=== PATIENT | male | born 1980 | race Caucasian/White ===

== ENCOUNTER 2017-10-13 14:08 | Emergency (ER) | payer MEDICAID ==
[~2017-10-13] VITALS: Ht 172.7 cm; Wt 99.8 kg
[2017-10-13 14:16] VITALS: Ht 172.7 cm; Wt 99.8 kg
[2017-10-13 15:44] VITALS: BP 125/74
== END 2017-10-13 15:45 | disposition home or self-care (01) ==
LOC: ED 14:08
DX: F41.9 Anxiety disorder, unspecified (principal); I10 Essential (primary) hypertension; F15.10 Other stimulant abuse, uncomplicated

== ENCOUNTER 2017-10-14 02:31 | Inpatient (IN) | payer MEDICAID ==
[~2017-10-14] VITALS: Ht 172.7 cm; Wt 95.9 kg
[2017-10-14 02:35] VITALS: Ht 172.7 cm; Wt 95.9 kg
[2017-10-14 04:49] LABS: BASOPHIL % 0.3 % (0-2); PLATELET COUNT 292 x10^3mcL (130-400); RED CELL DISTRIBUTION WIDTH 13.6 % (11.5-14.5)
[2017-10-14 04:58] LABS: CALCIUM 9.2 mg/dL (8.5-10.1); CARBON DIOXIDE 23.4 mmol/L (21-32); CHLORIDE SERUM 106 mmol/L (98-107); CREATININE SERUM 1.1 mg/dL (0.7-1.3); GFR1 > 60 mL/min; GLUCOSE SERUM 110 mg/dL (74-106); POTASSIUM SERUM 3.6 mmol/L (3.5-5.1); SODIUM SERUM 144 mmol/L (136-145)
[2017-10-14 05:11] LABS: ALBUMIN 4.4 g/dL (3.4-5.0); ALKALINE PHOSPHATASE 57 U/L (46-116); ALT/SGPT 75 U/L (16-63); AST/SGOT 33 U/L (15-37); BILIRUBIN TOTAL 1.18 mg/dL (0.20-1.00); FREE T4 1.56 ng/dL (0.76-1.46); TOTAL PROTEIN, SERUM 7.8 g/dL (6.4-8.2)
[2017-10-14 09:56] LABS: MAGNESIUM 2.1 mg/dL (1.8-2.4)
[2017-10-14 10:00] LABS: CHOLESTEROL/HDL RATIO 3.4
[2017-10-14 13:07] VITALS: BP 116/67
[2017-10-14 13:23] VITALS: BP 157/68
[2017-10-14 17:09] VITALS: BP 106/60
[2017-10-14 21:11] VITALS: BP 102/61
[2017-10-15 05:36] VITALS: BP 103/71
[2017-10-15 06:30] LABS: BASOPHIL % 0.5 % (0-2); PLATELET COUNT 214 x10^3mcL (130-400); RED CELL DISTRIBUTION WIDTH 13.9 % (11.5-14.5)
[2017-10-15 07:11] LABS: CARBON DIOXIDE 27.2 mmol/L (21-32); CHLORIDE SERUM 110 mmol/L (98-107); GFR1 > 60 mL/min; GLUCOSE SERUM 94 mg/dL (74-106); POTASSIUM SERUM 4.1 mmol/L (3.5-5.1); SODIUM SERUM 146 mmol/L (136-145)
[2017-10-15 07:24] LABS: UA SPECIFIC GRAVITY >=1.030 (1.005-1.035); microscopic required? YES; urine erythrocyte NEGATIVE (NEGATIVE)
[2017-10-15 07:30] LABS: AMPHETAMINE QUAL UR POSITIVE (NEG <=1000)
[2017-10-15 08:00] VITALS: BP 105/74
[2017-10-15 12:34] VITALS: BP 109/65
[2017-10-15] MEDS ORDERED: FLO4 PO (14:11)
[2017-10-15] MEDS ORDERED: PRI20 PO (14:12)
[2017-10-15] MEDS ORDERED: GOOD SENSE ASPI81 M3 PO (16:55)
[2017-10-15] MEDS ORDERED: LISINOPRIL10 MG PO (16:55)
== END 2017-10-15 15:05 | disposition home or self-care (01) | DRG 812 ==
LOC: ED 02:31 → DU 06:34
PROVIDERS: Emergency Medicine; Family Medicine
DX: T43.621A Poisoning by amphetamines, accidental (unintentional), initial encounter (principal); N17.0 Acute kidney failure with tubular necrosis; G92 Toxic encephalopathy; F15.10 Other stimulant abuse, uncomplicated; Z60.2 Problems related to living alone; R74.0 Nonspecific elevation of levels of transaminase and lactic acid dehydrogenase [LDH]; E02 Subclinical iodine-deficiency hypothyroidism; Z53.29 Procedure and treatment not carried out because of patient's decision for other reasons; K21.9 Gastro-esophageal reflux disease without esophagitis; I42.0 Dilated cardiomyopathy; N20.0 Calculus of kidney; Z72.89 Other problems related to lifestyle; Y92.89 Other specified places as the place of occurrence of the external cause; F41.9 Anxiety disorder, unspecified
CPT/HCPCS: 83880; 84439; G0480; J7030; Q0092